=== PATIENT | male | born 1965 | race Hispanic/Latino ===

== ENCOUNTER 2017-10-04 12:51 | Emergency (ER) | payer BC | END 2017-10-04 13:31 | disposition home or self-care (01) | LOC: BURERS 12:51 | DX: S46.911A Strain of unspecified muscle, fascia and tendon at shoulder and upper arm level, right arm, initial encounter (principal); F17.210 Nicotine dependence, cigarettes, uncomplicated; X50.1XXA Overexertion from prolonged static or awkward postures, initial encounter | CPT/HCPCS: 99283 ==

== ENCOUNTER 2017-12-29 18:58 | Emergency (ER) | payer BC ==
[2017-12-29] MEDS ORDERED: Fluorescein Opthalmic Strip ONE (19:08)
== END 2017-12-29 19:28 | disposition home or self-care (01) ==
LOC: BURERS 18:58
DX: S05.01XA Injury of conjunctiva and corneal abrasion without foreign body, right eye, initial encounter (principal); F17.210 Nicotine dependence, cigarettes, uncomplicated; W22.8XXA Striking against or struck by other objects, initial encounter
CPT/HCPCS: 99283